=== PATIENT | male | born 1965 | race Caucasian/White ===

== ENCOUNTER 2018-04-04 09:41 | Emergency (ER) | payer MEDICARE, OTHER ==
[~2018-04-04] VITALS: Ht 167.6 cm; Wt 111.4 kg
[2018-04-04] MEDS ORDERED: LISI-662 PO (10:12)
[2018-04-04] MEDS ORDERED: TRAZ150 PO (10:12)
[2018-04-04] MEDS ORDERED: CEPH500 PO (10:12)
[2018-04-04] MEDS ORDERED: DIVA-78 PO (10:12)
[2018-04-04] MEDS ORDERED: ZIPR80CA2 PO (10:12)
[2018-04-04] MEDS ORDERED: BACTDSB PO (10:12)
[2018-04-04] MEDS ORDERED: TRAZ-219 PO (10:12)
[2018-04-04] MEDS ORDERED: METO50 PO (10:12)
[2018-04-04] MEDS ORDERED: DULO60CA44 PO (10:12)
[2018-04-04] MEDS ORDERED: QUET200T PO (10:12)
[2018-04-04 10:49] LABS: BASOPHILS % (AUTO) 0.3 % (0.0-2.0); HEMATOCRIT 41.5 % (41-53); HEMOGLOBIN 13.9 g/dL (13.5-17.5); LYMPHOCYTES # (AUTO) 2.2 K/uL (1.0-4.8); MEAN CORPUSCULAR HEMOGLOBIN 31.2 pg (26.0-34.0); MEAN CORPUSCULAR HGB CONC 33.6 G/dL (31.0-37.0); MEAN CORPUSCULAR VOLUME 93 fL (80-100); MONOCYTES # (AUTO) 0.7 K/uL (0.1-1.0); MONOCYTES % (AUTO) 7.8 % (2.0-9.0); NEUTROPHILS # (AUTO) 6.5 K/uL (1.8-7.7); NEUTROPHILS % (AUTO) 66.9 % (40.0-70.0); PLATELET COUNT (AUTO) 228 K/uL (150-450); RED BLOOD CELL COUNT(AUTO) 4.47 MIL/uL (4.50-5.90); RED CELL DISTRIBUTION WIDTH 13.4 % (11.5-14.5)
[2018-04-04 10:59] LABS: ANION GAP 10 mmol/L (8-16); CALCIUM, TOTAL 9.4 mg/dL (8.8-10.5); CARBON DIOXIDE 26 mmol/L (22-29); CHLORIDE 102 mmol/L (98-107); CREATININE 1.18 mg/dL (0.60-1.30); GLOMERULAR FILTR. RATE CALC > 60 mL/min (>60); GLUCOSE,RANDOM 153 mg/dL (70-110); POTASSIUM 4.6 mmol/L (3.5-5.1); SODIUM SERUM 138 mmol/L (136-145); UREA NITROGEN, BLOOD 27 mg/dL (7-18)
[2018-04-04 11:05] LABS: ALANINE AMINOTRANSFERASE 28 U/L (12-78); ALBUMIN 3.4 g/dL (3.4-5.0); ALKALINE PHOSPHATASE 59 U/L (46-116); ASPARTATE AMINOTRANSFERASE 13 U/L (15-37); BILIRUBIN,TOTAL 0.2 mg/dL (0.1-1.0); TOTAL PROTEIN, SERUM 6.5 g/dL (6.4-8.2); VALPROIC ACID 45 mcg/mL (50-100)
[2018-04-04 11:15] LABS: AMPHET/METH SCREEN,URINE NEGATIVE (NEGATIVE); BARBITURATE SCREEN, URINE NEGATIVE (NEGATIVE); BENZODIAZEPINES SCREEN,URINE NEGATIVE (NEGATIVE); CANNABINOID SCREEN,URINE NEGATIVE (NEGATIVE); COCAINE SCREEN,URINE NEGATIVE (NEGATIVE); METHADONE SCREEN, URINE NEGATIVE (NEGATIVE); OPIATE SCREEN,URINE NEGATIVE (NEGATIVE)
[2018-04-04 11:19] LABS: PHENCYCLIDINE SCREEN,URINE NEGATIVE (NEGATIVE)
[2018-04-04] MEDS ORDERED: ACETAMINOPHEN 325 MG TABLET PO ONE ×2 (11:30→12:00)
[2018-04-04 13:44] VITALS: BP 116/61
[2018-04-04] MEDS ORDERED: IBUPROFEN 600 MG TABLET PO ONE (14:15)
== END 2018-04-04 16:16 | disposition home or self-care (01) ==
LOC: EMS 09:42
DX: S60.512A Abrasion of left hand, initial encounter (principal); F25.9 Schizoaffective disorder, unspecified; I10 Essential (primary) hypertension; F17.210 Nicotine dependence, cigarettes, uncomplicated; Z79.899 Other long term (current) drug therapy; X58.XXXA Exposure to other specified factors, initial encounter; Y93.89 Activity, other specified; Y92.89 Other specified places as the place of occurrence of the external cause; Y99.8 Other external cause status
CPT/HCPCS: 36415; 80053; 80164; 80307; 85025; 99285; G0480

== ENCOUNTER 2019-03-21 10:19 | Inpatient (IN) | payer BC, MEDICAID ==
[~2019-03-21] VITALS: Ht 165.1 cm; Wt 101.1 kg
[~2019-03-21 10:19] MED LIST: DIVA-78 PO; DULO60CA44 PO; LISI-662 PO; METO50 PO; QUET200T PO
[2019-03-21] MEDS ORDERED: DiphenhydrAMINE HCL 50 MG/ML VIAL IM ONE (11:00)
[2019-03-21] MEDS ORDERED: LORazepam 2 MG/ML VIAL IM ONE (11:00)
[2019-03-21] MEDS ORDERED: HALOPERIDOL LACTATE 5 MG/ML VIAL IM ONE (11:00)
[2019-03-21 12:28] LABS: BASOPHILS % (AUTO) 0.6 % (0.0-2.0); HEMATOCRIT 47.4 % (41-53); HEMOGLOBIN 15.7 g/dL (13.5-17.5); LYMPHOCYTES # (AUTO) 1.7 K/uL (1.0-4.8); LYMPHOCYTES % (AUTO) 19.4 % (22.0-44.0); MEAN CORPUSCULAR HEMOGLOBIN 30.7 pg (26.0-34.0); MEAN CORPUSCULAR HGB CONC 33.2 G/dL (31.0-37.0); MEAN CORPUSCULAR VOLUME 93 fL (80-100); MONOCYTES # (AUTO) 0.6 K/uL (0.1-1.0); MONOCYTES % (AUTO) 7.2 % (2.0-9.0); NEUTROPHILS % (AUTO) 70.8 % (40.0-70.0); PLATELET COUNT (AUTO) 204 K/uL (150-450); RED BLOOD CELL COUNT(AUTO) 5.12 MIL/uL (4.50-5.90)
[2019-03-21 12:37] LABS: ANION GAP 12 mmol/L (8-16); CALCIUM, TOTAL 9.3 mg/dL (8.8-10.5); CARBON DIOXIDE 24 mmol/L (22-29); CHLORIDE 106 mmol/L (98-107); CREATININE 1.15 mg/dL (0.60-1.30); GLOMERULAR FILTR. RATE CALC > 60 mL/min (>60); GLUCOSE,RANDOM 118 mg/dL (70-110); POTASSIUM 3.7 mmol/L (3.5-5.1); SODIUM SERUM 142 mmol/L (136-145); UREA NITROGEN, BLOOD 18 mg/dL (7-18)
[2019-03-21 12:43] LABS: ALANINE AMINOTRANSFERASE 30 U/L (12-78); ALBUMIN 4.1 g/dL (3.4-5.0); ALKALINE PHOSPHATASE 73 U/L (46-116); ASPARTATE AMINOTRANSFERASE 29 U/L (15-37); BILIRUBIN,TOTAL 0.8 mg/dL (0.1-1.0); TOTAL PROTEIN, SERUM 7.3 g/dL (6.4-8.2); VALPROIC ACID < 3 mcg/mL (50-100)
[2019-03-21 15:15] VITALS: BP 145/62
[2019-03-21] MEDS ORDERED: MAG HYDROX/AL HYDROX/SIMETH ES 30 ML SUSPENSION UDCUP PO PRN (15:45)
[2019-03-21] MEDS ORDERED: ACETAMINOPHEN 325 MG TABLET PO PRN (15:45)
[2019-03-21] MEDS ORDERED: CloNIDine HCL 0.1 MG TABLET PO PRN (15:45)
[2019-03-21] MEDS ORDERED: GuaiFENesin/D-METHORPHAN [SUGAR-FREE] 200-20MG/10 ML SYRUP UDCUP PO PRN (15:45)
[2019-03-21] MEDS ORDERED: ONDANSETRON HCL 4 MG TABLET PO PRN (15:45)
[2019-03-21] MEDS ORDERED: LOPERAMIDE HCL 2 MG CAPSULE PO PRN (15:45)
[2019-03-21] MEDS ORDERED: ALBUTEROL SULFATE HFA 90 MCG/PUFF 8 GM INHALER IH PRN (15:45)
[2019-03-21] MEDS ORDERED: MAGNESIUM HYDROXIDE SUSPENSION 30 ML UDCUP PO PRN (15:45)
[2019-03-21] MEDS ORDERED: DOCUSATE SODIUM 100 MG CAPSULE PO PRN (15:45)
[2019-03-21] MEDS ORDERED: PETROLATUM,WHITE 28 GM JELLY TP PRN (15:45)
[2019-03-21] MEDS: QUEtiapine FUMARATE 200 MG TABLET PO SCH (16:16)
[2019-03-21 17:54] VITALS: BP 132/76
[2019-03-21] MEDS: DIVALPROEX SODIUM 500 MG DR TABLET PO SCH (21:00)
[2019-03-22 07:14] LABS: BASOPHILS % (AUTO) 1.1 % (0.0-2.0); EOSINOPHILS % (AUTO) 2.6 % (1.0-6.0); HEMATOCRIT 49.4 % (41-53); HEMOGLOBIN 16.4 g/dL (13.5-17.5); LYMPHOCYTES # (AUTO) 1.9 K/uL (1.0-4.8); LYMPHOCYTES % (AUTO) 20.6 % (22.0-44.0); MEAN CORPUSCULAR HEMOGLOBIN 30.9 pg (26.0-34.0); MEAN CORPUSCULAR HGB CONC 33.1 G/dL (31.0-37.0); MEAN CORPUSCULAR VOLUME 93 fL (80-100); MONOCYTES # (AUTO) 0.8 K/uL (0.1-1.0); MONOCYTES % (AUTO) 8.8 % (2.0-9.0); NEUTROPHILS # (AUTO) 6.2 K/uL (1.8-7.7); NEUTROPHILS % (AUTO) 66.9 % (40.0-70.0); PLATELET COUNT (AUTO) 215 K/uL (150-450); RED BLOOD CELL COUNT(AUTO) 5.29 MIL/uL (4.50-5.90); RED CELL DISTRIBUTION WIDTH 13.2 % (11.5-14.5)
[2019-03-22 07:20] LABS: HEMOGLOBIN A1C 5.8 % (4.5-6.2)
[2019-03-22] MEDS ORDERED: HALOPERIDOL LACTATE 5 MG/ML VIAL IM ONE (07:30)
[2019-03-22] MEDS ORDERED: DiphenhydrAMINE HCL 50 MG/ML VIAL IM ONE (07:30)
[2019-03-22] MEDS ORDERED: LORazepam 2 MG/ML VIAL IM ONE (07:30)
[2019-03-22 07:34] LABS: ALBUMIN 4.1 g/dL (3.4-5.0); BILIRUBIN,TOTAL 0.5 mg/dL (0.1-1.0); CALCIUM, TOTAL 9.7 mg/dL (8.8-10.5); CREATININE 1.31 mg/dL (0.60-1.30); THYROID STIMULATING HORMONE 0.74 uIU/mL (0.36-3.74); TOTAL PROTEIN, SERUM 7.6 g/dL (6.4-8.2)
[2019-03-22] MEDS: QUEtiapine FUMARATE 200 MG TABLET PO SCH ×2 (07:51→16:42)
[2019-03-22] MEDS: DIVALPROEX SODIUM 500 MG DR TABLET PO SCH ×2 (07:51→20:16)
[2019-03-22] MEDS: METOPROLOL TARTRATE 50 MG TABLET PO SCH (07:51)
[2019-03-22] MEDS: DULoxetine HCL 60 MG CAPSULE PO SCH (07:51)
[2019-03-22] MEDS: LISINOPRIL 20 MG TABLET PO SCH (07:51)
[2019-03-22 08:27] LABS: CHOL/HDL RATIO 3.7 (4.2-7.3)
[2019-03-22 16:50] VITALS: BP 116/77
[2019-03-23] MEDS: LORazepam 2 MG TABLET PO PRN (01:31)
[2019-03-23] MEDS: ZOLPIDEM TARTRATE 10 MG TABLET PO PRN ×2 (01:31→20:12)
[2019-03-23 01:34] VITALS: BP 118/63
[2019-03-23] MEDS ORDERED: -PHARMACY VACCINE NOTE- MISC ONE (04:45)
[2019-03-23] MEDS: DIVALPROEX SODIUM 500 MG DR TABLET PO SCH ×2 (08:28→20:13)
[2019-03-23] MEDS: QUEtiapine FUMARATE 200 MG TABLET PO SCH ×2 (08:28→17:47)
[2019-03-23] MEDS: DULoxetine HCL 60 MG CAPSULE PO SCH (08:29)
[2019-03-23] MEDS: METOPROLOL TARTRATE 50 MG TABLET PO SCH (08:29)
[2019-03-23] MEDS: LISINOPRIL 20 MG TABLET PO SCH (08:29)
[2019-03-23 09:00] VITALS: BP 159/81
[2019-03-23 21:05] VITALS: BP 136/79
[2019-03-24] MEDS: DIVALPROEX SODIUM 500 MG DR TABLET PO SCH ×2 (08:19→20:22)
[2019-03-24] MEDS: METOPROLOL TARTRATE 50 MG TABLET PO SCH (08:19)
[2019-03-24] MEDS: QUEtiapine FUMARATE 200 MG TABLET PO SCH ×2 (08:19→16:59)
[2019-03-24] MEDS: DULoxetine HCL 60 MG CAPSULE PO SCH (08:19)
[2019-03-24] MEDS: LISINOPRIL 20 MG TABLET PO SCH (08:19)
[2019-03-24 08:27] VITALS: BP 138/80
[2019-03-24] MEDS: IBUPROFEN 400 MG TABLET PO PRN (15:06)
[2019-03-25] MEDS: QUEtiapine FUMARATE 200 MG TABLET PO SCH ×2 (08:03→16:31)
[2019-03-25] MEDS: METOPROLOL TARTRATE 50 MG TABLET PO SCH (08:03)
[2019-03-25] MEDS: DULoxetine HCL 60 MG CAPSULE PO SCH (08:03)
[2019-03-25] MEDS: DIVALPROEX SODIUM 500 MG DR TABLET PO SCH ×2 (08:03→20:15)
[2019-03-25] MEDS: LISINOPRIL 20 MG TABLET PO SCH (08:03)
[2019-03-25] MEDS: LORazepam 2 MG TABLET PO PRN (08:04)
[2019-03-25] MEDS: NICOTINE 14 MG/24 HOUR PATCH TD PRN (08:06)
[2019-03-25 11:01] VITALS: BP 142/76
[2019-03-25 17:18] VITALS: BP 129/77
[2019-03-26 02:42] VITALS: BP 102/53
[2019-03-26] MEDS: IBUPROFEN 400 MG TABLET PO PRN (02:58)
[2019-03-26] MEDS: ZOLPIDEM TARTRATE 10 MG TABLET PO PRN (02:58)
[2019-03-26 08:00] VITALS: BP 139/69
[2019-03-26] MEDS: QUEtiapine FUMARATE 200 MG TABLET PO SCH ×2 (08:05→16:04)
[2019-03-26] MEDS: DIVALPROEX SODIUM 500 MG DR TABLET PO SCH ×2 (08:05→20:49)
[2019-03-26] MEDS: DULoxetine HCL 60 MG CAPSULE PO SCH (08:05)
[2019-03-26] MEDS: LISINOPRIL 20 MG TABLET PO SCH (08:05)
[2019-03-26] MEDS: METOPROLOL TARTRATE 50 MG TABLET PO SCH (08:05)
[2019-03-26] MEDS: LORazepam 2 MG TABLET PO PRN (08:08)
[2019-03-26] MEDS: BuPROPion HCL XL 150 MG ER TABLET PO SCH (13:18)
[2019-03-26 16:00] VITALS: BP 112/57
[2019-03-26 19:45] VITALS: BP 124/76
[2019-03-27] MEDS: HALOPERIDOL 5 MG TABLET PO PRN (02:53)
[2019-03-27] MEDS: ZOLPIDEM TARTRATE 10 MG TABLET PO PRN (02:53)
[2019-03-27] MEDS: BuPROPion HCL XL 150 MG ER TABLET PO SCH (08:19)
[2019-03-27] MEDS: DULoxetine HCL 60 MG CAPSULE PO SCH (08:19)
[2019-03-27] MEDS: METOPROLOL TARTRATE 50 MG TABLET PO SCH (08:19)
[2019-03-27] MEDS: QUEtiapine FUMARATE 200 MG TABLET PO SCH ×2 (08:19→16:32)
[2019-03-27] MEDS: DIVALPROEX SODIUM 500 MG DR TABLET PO SCH ×2 (08:19→20:22)
[2019-03-27] MEDS: LISINOPRIL 20 MG TABLET PO SCH (08:20)
[2019-03-27 10:06] VITALS: BP 136/72
[2019-03-27 16:41] VITALS: BP 136/71
[2019-03-28 04:22] VITALS: BP 112/70
[2019-03-28] MEDS: IBUPROFEN 400 MG TABLET PO PRN ×2 (04:26→16:07)
[2019-03-28] MEDS: LORazepam 2 MG TABLET PO PRN ×2 (04:26→13:01)
[2019-03-28 07:17] LABS: ANION GAP 6 mmol/L (8-16); CALCIUM, TOTAL 9.3 mg/dL (8.8-10.5); CARBON DIOXIDE 32 mmol/L (22-29); CHLORIDE 103 mmol/L (98-107); CREATININE 1.23 mg/dL (0.60-1.30); GLOMERULAR FILTR. RATE CALC > 60 mL/min (>60); GLUCOSE,RANDOM 100 mg/dL (70-110); POTASSIUM 5.4 mmol/L (3.5-5.1); SODIUM SERUM 141 mmol/L (136-145); UREA NITROGEN, BLOOD 23 mg/dL (7-18)
[2019-03-28] MEDS: LISINOPRIL 20 MG TABLET PO SCH (09:01)
[2019-03-28] MEDS: DULoxetine HCL 60 MG CAPSULE PO SCH (09:01)
[2019-03-28] MEDS: METOPROLOL TARTRATE 50 MG TABLET PO SCH (09:01)
[2019-03-28] MEDS: BuPROPion HCL XL 150 MG ER TABLET PO SCH (09:01)
[2019-03-28] MEDS: DIVALPROEX SODIUM 500 MG DR TABLET PO SCH ×2 (09:01→20:43)
[2019-03-28] MEDS: QUEtiapine FUMARATE 200 MG TABLET PO SCH ×2 (09:02→16:07)
[2019-03-28 09:10] VITALS: BP 139/71
[2019-03-28] MEDS ORDERED: SODIUM POLYSTYRENE SULFONATE 15 GM/60 ML SUSPENSION BOTTLE PO ONE (09:30)
[2019-03-28 16:06] VITALS: BP 103/62
[2019-03-28] MEDS: ZOLPIDEM TARTRATE 10 MG TABLET PO PRN (20:53)
[2019-03-28] MEDS: HALOPERIDOL 5 MG TABLET PO PRN (20:53)
[2019-03-29] MEDS: DULoxetine HCL 60 MG CAPSULE PO SCH (08:06)
[2019-03-29] MEDS: LISINOPRIL 20 MG TABLET PO SCH (08:06)
[2019-03-29] MEDS: DIVALPROEX SODIUM 500 MG DR TABLET PO SCH ×2 (08:06→20:18)
[2019-03-29] MEDS: BuPROPion HCL XL 150 MG ER TABLET PO SCH (08:06)
[2019-03-29] MEDS: METOPROLOL TARTRATE 50 MG TABLET PO SCH (08:06)
[2019-03-29] MEDS: QUEtiapine FUMARATE 200 MG TABLET PO SCH ×2 (08:06→16:01)
[2019-03-29 08:29] VITALS: BP 132/68
[2019-03-29] MEDS: IBUPROFEN 400 MG TABLET PO PRN (08:29)
[2019-03-29] MEDS: HALOPERIDOL 5 MG TABLET PO PRN (09:00)
[2019-03-29 16:41] VITALS: BP 129/56
[2019-03-29] MEDS: ZOLPIDEM TARTRATE 10 MG TABLET PO PRN (20:19)
[2019-03-30 02:54] VITALS: BP 129/65
[2019-03-30] MEDS: HALOPERIDOL 5 MG TABLET PO PRN ×2 (02:55→09:17)
[2019-03-30] MEDS: LORazepam 2 MG TABLET PO PRN ×3 (02:55→16:22)
[2019-03-30] MEDS: QUEtiapine FUMARATE 200 MG TABLET PO SCH ×2 (09:17→16:22)
[2019-03-30] MEDS: DIVALPROEX SODIUM 500 MG DR TABLET PO SCH ×2 (09:17→20:18)
[2019-03-30] MEDS: DULoxetine HCL 60 MG CAPSULE PO SCH (09:17)
[2019-03-30] MEDS: METOPROLOL TARTRATE 50 MG TABLET PO SCH (09:18)
[2019-03-30] MEDS: LISINOPRIL 20 MG TABLET PO SCH (09:18)
[2019-03-30] MEDS: BuPROPion HCL XL 150 MG ER TABLET PO SCH (09:18)
[2019-03-30 09:30] VITALS: BP 137/85
[2019-03-30 17:06] VITALS: BP 130/68
[2019-03-30 17:25] VITALS: BP 139/79
[2019-03-30] MEDS: ZOLPIDEM TARTRATE 10 MG TABLET PO PRN (20:17)
[2019-03-31 08:29] VITALS: BP 125/74
[2019-03-31] MEDS: LORazepam 2 MG TABLET PO PRN ×3 (08:34→20:35)
[2019-03-31] MEDS: BuPROPion HCL XL 150 MG ER TABLET PO SCH (08:34)
[2019-03-31] MEDS: HALOPERIDOL 5 MG TABLET PO PRN (08:34)
[2019-03-31] MEDS: QUEtiapine FUMARATE 200 MG TABLET PO SCH ×2 (08:34→17:02)
[2019-03-31] MEDS: DULoxetine HCL 60 MG CAPSULE PO SCH (08:35)
[2019-03-31] MEDS: LISINOPRIL 20 MG TABLET PO SCH (08:35)
[2019-03-31] MEDS: DIVALPROEX SODIUM 500 MG DR TABLET PO SCH (08:35)
[2019-03-31] MEDS: METOPROLOL TARTRATE 50 MG TABLET PO SCH (08:35)
[2019-03-31] MEDS: IBUPROFEN 400 MG TABLET PO PRN (08:45)
[2019-03-31 16:30] VITALS: BP 100/62
[2019-03-31] MEDS: ZOLPIDEM TARTRATE 10 MG TABLET PO PRN (20:35)
[2019-03-31] MEDS: DIVALPROEX SODIUM 250 MG DR TABLET PO SCH (20:35)
[2019-04-01 08:00] VITALS: BP 149/68
[2019-04-01] MEDS: QUEtiapine FUMARATE 200 MG TABLET PO SCH ×3 (08:56→20:10)
[2019-04-01] MEDS: LISINOPRIL 20 MG TABLET PO SCH (08:56)
[2019-04-01] MEDS: DULoxetine HCL 60 MG CAPSULE PO SCH ×2 (08:56→09:00)
[2019-04-01] MEDS: BuPROPion HCL XL 150 MG ER TABLET PO SCH (08:56)
[2019-04-01] MEDS: DIVALPROEX SODIUM 250 MG DR TABLET PO SCH ×3 (08:57→20:10)
[2019-04-01] MEDS: METOPROLOL TARTRATE 50 MG TABLET PO SCH (08:58)
[2019-04-01] MEDS: LORazepam 2 MG TABLET PO PRN (09:52)
[2019-04-01 16:20] VITALS: BP 135/71
[2019-04-02] MEDS: LISINOPRIL 20 MG TABLET PO SCH (08:34)
[2019-04-02] MEDS: BuPROPion HCL XL 150 MG ER TABLET PO SCH (08:34)
[2019-04-02] MEDS: LORazepam 2 MG TABLET PO PRN ×2 (08:34→20:28)
[2019-04-02] MEDS: DIVALPROEX SODIUM 250 MG DR TABLET PO SCH ×2 (08:34→20:28)
[2019-04-02] MEDS: DULoxetine HCL 60 MG CAPSULE PO SCH (08:34)
[2019-04-02] MEDS: METOPROLOL TARTRATE 50 MG TABLET PO SCH (08:34)
[2019-04-02 09:13] VITALS: BP 110/60
[2019-04-02 16:00] VITALS: BP 116/66
[2019-04-02] MEDS: QUEtiapine FUMARATE 200 MG TABLET PO SCH (20:28)
[2019-04-03] MEDS: LISINOPRIL 20 MG TABLET PO SCH (09:10)
[2019-04-03] MEDS: DULoxetine HCL 60 MG CAPSULE PO SCH (09:10)
[2019-04-03] MEDS: NICOTINE 14 MG/24 HOUR PATCH TD PRN (09:10)
[2019-04-03] MEDS: BuPROPion HCL XL 150 MG ER TABLET PO SCH (09:10)
[2019-04-03 09:11] VITALS: BP 113/63
[2019-04-03] MEDS: IBUPROFEN 400 MG TABLET PO PRN (09:11)
[2019-04-03] MEDS: LORazepam 2 MG TABLET PO PRN ×2 (09:11→13:15)
[2019-04-03] MEDS: METOPROLOL TARTRATE 50 MG TABLET PO SCH (09:11)
[2019-04-03] MEDS: DIVALPROEX SODIUM 250 MG DR TABLET PO SCH (09:11)
[2019-04-03] MEDS ORDERED: BUPR-93 PO (12:48)
== END 2019-04-03 16:45 | disposition home or self-care (01) | DRG 885 ==
LOC: EMS 10:23 → 3EC 14:37
PROVIDERS: ADMIT Psychiatry & Neurology Psychiatry; ATTEND Psychiatry & Neurology Psychiatry
DX: F25.9 Schizoaffective disorder, unspecified (principal); R45.851 Suicidal ideations; I10 Essential (primary) hypertension; Z91.14 Patient's other noncompliance with medication regimen; F17.210 Nicotine dependence, cigarettes, uncomplicated; E87.5 Hyperkalemia; F32.9 Major depressive disorder, single episode, unspecified; Z78.1 Physical restraint status; R74.0 Nonspecific elevation of levels of transaminase and lactic acid dehydrogenase [LDH]; R79.89 Other specified abnormal findings of blood chemistry
CPT/HCPCS: 83036; 84132; 84443; 99291; G0480; J1200; J1630; J2060